=== PATIENT | male | born 1950 | race Caucasian/White ===

== ENCOUNTER 2017-11-29 16:51 | Emergency (ER) | payer OTHER, BC ==
[2017-11-29 17:12] VITALS: PULSE 58
--- NOTE | 2017-11-29 17:24 | EDPHY ---
H & P Stated Complaint: Fell hiking,can't bend L leg "I tore the quadricep" Time Seen by Provider: 11/29/17 17:23 HPI/ROS: HPI: This is a 67-year-old male presents with Chief Complaint: Fell hiking,can't bend L leg "I tore the quadricep" Location: Left knee/quadriceps Quality: Injury Duration: 2 hr prior to arrival Signs and Symptoms: No bleeding, no radiation, no numbness, no weakness, no tingling, no incontinence,+ decreased range of motion, + swelling, + pain Timing: Acute Severity: Severe Context: Patient is walking a trail with his family and as he was going down a pretty significant grade he slipped on the wet ground and then felt an immediate "pop" and constant moderate pain that was nonradiating in nature superior knee. He is concerned that it may be a quadriceps tear as he has a history of a torn quadriceps on right in the past. He reports that sees able to bear weight with mild pain. He reports is unable to extend his knee fully due to pain. He denies any paresthesias/weakness/skin color changes. Patient is here visiting his daughter. Lives in [place], [place]. His orthopedist that he has good friends with also lives in [place] and wishes to return home follow-up with his orthopedist. Modifying Factors: None Comment: ROS: see HPI Constitutional: No fever, no chills, no weight loss Eyes: No blurred vision Respiratory: No shortness of breath, no cough Cardiovascular: No chest pain Gastrointestinal: No nausea, no vomiting no diarrhea Genitourinary: No dysuria Extremities: No myalgias Neurologic: No weakness, no numbness Skin: No rashes Hematologic: No bruising, no bleeding MEDICAL/SURGICAL/SOCIAL HISTORY: Medical history: torn quad on R in past, BPH Surgical history: Denies Social history: . From [place] CONSTITUTIONAL: Irritable elderly white male, awake and alert, no obvious distress HEENT: Atraumatic and normocephalic, PERRL, EOMI. no globe entrapment, no raccoon eyes. no Lester signs.Tympanic membranes clear. No tympanic membrane rupture. Nares patent; no septal hematoma. Oropharynx clear, no exudate and moist pink mucosa. No malocclusion. no dental trauma. Airway patent. No lymphadenopathy. NECK: supple, no midline tenderness, flexion 45 degrees, extension 45 degrees, right and left lateral flexion 45 degrees. No meningismus. Cardiovascular: Normal S1/S2, regular rate, regular rhythm, without murmur rub or gallop. PULMONARY/CHEST: Symmetrical and nontender. no crepitus. Clear to auscultation bilaterally. Good air movement. No accessory muscle usage. ABDOMEN: Soft, nondistended, nontender, no ecchymosis, no rebound, no guarding , no peritoneal signs, no masses or organomegaly. No CVAT. PELVIC: no pain with rocking; bilateral hips flexion 125 degrees, extension 30 degrees, with no pain internal rotation and no pain external rotation. BACK: No midline tenderness, no paraspinous spasm, deep tendon reflexes 2/2, no pain with straight leg raise EXTREMITIES: 2/2 DP and PT pulses, knee shows mild effusion; medial and lateral joint line tenderness. Unable to fully extend. No deformity present at superior knee or inferior quadriceps portion. No ecchymosis. Stable to valgus and varus stress. No pain with anterior drawer or posterior drawer test. no deformities, no clubbing, no cyanosis or edema. NEUROLOGICAL: no focal neuro deficits. GCS 15. SKIN: Warm and dry, no erythema. no rash. Good capillary refill. Source: Patient Exam Limitations: No limitations - Personal History Current Tetanus Diphtheria and Acellular Pertussis (TDAP): Yes - Medical/Surgical History Other PMH: torn quad on R in past. BPH - Social History Smoking Status: Former smoker Constitutional: Initial Vital Signs Temperature (C) 36.4 C 11/29/17 17:00 Heart Rate 58 L 11/29/17 17:00 Respiratory Rate 16 11/29/17 17:00 Blood Pressure 153/86 H 11/29/17 17:00 O2 Sat (%) 97 11/29/17 17:00 O2 Delivery Mode Room Air Allergies/Adverse Reactions: Sulfa (Sulfonamide Antibiotics) Allergy (Mild, Verified 11/29/17 17:09) Rash Home Medications: Medication Instructions Recorded Rivaroxaban [Xarelto] 20 mg PO DAILY #5 tab 11/29/17 Tamsulosin HCl [Flomax 0.4 MG (*)] 0.4 mg PO 01/20/18 oxyCODONE/APAP 5/325 [Percocet 1 - 2 tab PO Q4H PRN #20 tab 11/29/17 5325 (*)] Medical Decision Making ED Course/Re-evaluation: Left knee x-ray, MRI of left knee ordered Patient given ice pack and offered ibuprofen but he politely refused. No signs of neurovascular compromise/tenting of skin/compartment syndrome/ extremities and joints examined above and below area of concern and are neurovascularly intact. 1834: Notified by [employer] that patient politely declines any x-ray imaging as he has had an MRI. MRI shows 90% quadriceps tear, moderate effusion, LCL sprain, partial tear ACL Patient is requesting Rx Xarelto 20 mg daily as he sustained a DVT with last quadriceps rupture. Patient is a physician. Discussed recommendation of obtaining labs and renal function prior to starting medication as well as discussion with orthopedist for okay to start Xarelto as patient will need surgery within the next 7 days. Knee immobilized, crutches, nonweightbearing left lower extremity, orthopedic follow-up and surgery within 7 days. This patient was seen under the supervision of my secondary supervising physician. I evaluated care for this patient independently. Discussed this patient with Dr. Washington who did not see the patient. Patient's presentation, labs/imaging, treatment and plan of care were discussed with secondary supervising physician. Differential Diagnosis: Differential diagnosis includes but is not limited to quadriceps tear, patella dislocation, patellar fracture, knee internal derangement, contusion, musculoskeletal sprain. - Data Points Medications Given: Discontinued Medications Ibuprofen (Motrin) 600 mg PO EDNOW ONE Stop: 11/29/17 17:47 Last Admin: 11/29/17 19:10 Dose: Not Given Departure - Departure Disposition: Home, Routine, Self-Care Clinical Impression: Rupture of left quadriceps tendon Qualifiers: Encounter type: initial encounter Qualified Code(s): S76.112A - Strain of left quadriceps muscle, fascia and tendon, initial encounter Sprain of LCL (lateral collateral ligament) of knee Qualifiers: Encounter type: initial encounter Laterality: left Qualified Code(s): S83.422A - Sprain of lateral collateral ligament of left knee, initial encounter Left ACL tear Qualifiers: Encounter type: initial encounter Qualified Code(s): S83.512A - Sprain of anterior cruciate ligament of left knee, initial encounter Condition: Good Instructions: Knee Immobilizer (ED), Tendon Repair (DC), Knee Arthroscopy (DC) Additional Instructions: Wear the knee immobilizer while out of bed and use crutches to aid ambulation. Observe nonweightbearing status on your left lower extremity Take Tylenol 650 mg every 4 hours and/or Ibuprofen 600 mg every 8 hours with food as needed for pain. Use Percocet every 6 hours as needed for severe/breakthrough pain. Do not use Tylenol and Percocet concomitantly. Apply ice for 30 minutes at a time; 2-3 times per day for the next 1-2 days. Follow up with Orthopedics in 3-5 days for pending surgery. Only start Xarelto after speaking with your Orthopedist. Referrals: BROOKE SEVILLA [Other] - As per Instructions Stand Alone Forms: Airline Excuse Prescriptions: oxyCODONE/APAP 5/325 [Percocet 5/325 (*)] 1 - 2 tab PO Q4H PRN #20 tab PRN Reason: Pain, Severe Rivaroxaban [Xarelto] 20 mg PO DAILY #5 tab
[2017-11-29] MEDS ORDERED: IBUPROFEN 600 MG TAB PO ONE (17:46)
[2017-11-29 21:25] VITALS: BP 146/84; RESP 18; TEMP 97.9; O2SAT 98
== END 2017-11-29 21:24 | disposition home or self-care (01) ==
DX: S76.112A Strain of left quadriceps muscle, fascia and tendon, initial encounter (principal); S83.422A Sprain of lateral collateral ligament of left knee, initial encounter; S83.512A Sprain of anterior cruciate ligament of left knee, initial encounter; Z87.891 Personal history of nicotine dependence; W01.0XXA Fall on same level from slipping, tripping and stumbling without subsequent striking against object, initial encounter; Y99.8 Other external cause status; Y93.01 Activity, walking, marching and hiking
CPT/HCPCS: 73721; 99284; L1830